=== PATIENT | female | born 1985 | race Caucasian/White ===

== ENCOUNTER 2017-10-17 08:08 | Inpatient (IN) | payer OTHER ==
[2017-10-17] MEDS ORDERED: Dinoprostone* 10 MG VAG.SUPP VAGINAL ONE (08:43)
--- NOTE | 2017-10-17 08:54 | HP ---
General Information - General Information Maternal Age: 31 Grav: 1 Para: 0 SAB: 0 IEA: 0 Estimated Due Date: 10/30/17 Determined By: LMP Gestational Age in Weeks and Days: 38 Weeks and 1 Days Maternal Blood Type and Rh: A Positive - Results this Serology/RPR Result: Non-Reactive Rubella Result: Immune HBsAg Result: Negative HIV Result: Negative GBS Culture Result: Negative Past Medical History Delivery History: See Records Delivery History Comment: primip Pertinent Past Medical History: See Records Past Medical History Comment: Hx asthma. Uses rescue inhaler PRN Pseudoseizures Lyme Disease (11/2016) Hx Eosinophilic Esophagitis followed by Dr. Wick Pertinent Past Surgical History: See Records Past Surgical History Comment: Tonsillectomy 2009 Pertinent Family History: See Records Family History Comment: Father GI problems Mother Hx unknown PGM DM Type 2 PGF CAD MGM Thyroid disease, breast cancer MGF Alzheimers - Antepartal Records Antepartal Records: Reviewed, Complicated by: - gestational hypertension Review of Systems Constitutional: Comfortable CV Complaint: No Respiratory: Shortness of Breath: No Gastrointestinal: No Nausea/Vomiting, Normal Bowel Movement Genitourinary: No Dysuria, No Bleeding, No Leaking Fluid Musculoskeletal: No Complaint Neurological: No Headache, No Visual Changes Movement: Normal Exam Allergies/Adverse Reactions: Allergies No Known Allergies Allergy (Verified 10/14/17 09:27) BP 149/88 HR 75 T 98.4 RR 16 - Measurements Height: 5 ft 4 in Weight: 175 lb Weight in lbs: 175 Body Mass Index (BMI): 30.0 Pre- Weight: 129 lb Weight Gained This : 46 lbs and 0 ozs - Exam Abdomen: No Upper Quadrant Pain Breast: Breast Exam Deferred CVA: No CVA Tenderness Extremities: No Edema Heart: Normal Rhythm/Heart Sounds HEENT: No Significant Findings Lungs: Clear Bilaterally Rectal: Rectal Exam Deferred Reflexes: DTR 2+ Thyroid: No Thyromegaly - Abdominal Exam Abdomen Exam: Non-Tender, Fundal Height Consistent with Dates - Ultrasound/Biophysical Profile Ultrasound Status: Not Done Targeted Exam Findings See L&D Outpatient Visit Provider Note for Findings: N/A Estimated Weight: EFW 6.5lbs Cervical Exam: 1cm Effacement: 50% Station: -2 Presenting Part: Vertex Membrane Status: Intact Sterile Speculum Exam: Not done Bleeding/Discharge: Bloody Show - s/p VE EFM Findings - External Monitor Findings Baseline Heart Rate: 140 External Monitor Findings: Accelerations Present, No Pattern of Variable or Late Decelerations, Variability Moderate, Baseline Stable External Monitor Findings Comment: No evidence of metabolic acidemia Contractions: None Assessment/Plan - Reason for Visit Reason for Visit: IUP at 38-1/7 with gestational hypertension No evidence of metabolic acidemia - Obstetrical Risk Factors Obstetrical Risk Factors: Gestational Hypertension - Plan Plan: Cervical Ripening
--- NOTE | 2017-10-17 10:22 | PTEDU ---
Patient Name: SHIREEN KUHN SHIREEN KUHN selected video: Never Ever Shake a Baby to view on 10/17/2017 at 10:21:48 AM from [facility] [id number]
--- NOTE | 2017-10-17 10:32 | PTEDU ---
Patient Name: SHIREEN KUHN SHIREEN KUHN selected video: BBOB: Nurturing Your Gorgeous &Growing Baby by to view on 10/17/2017 at 10:31:01 AM [id number]
--- NOTE | 2017-10-17 17:31 | PN ---
Progress Note - Progress Note Date of Service: 10/17/17 Note: S: Pt coped well with UCs in the tub. At 1608 requested that Cervidil be removed by RN because pt no longer felt a rest between UCs. Per CNM order Cervidil removed at that time. Pt continues to breathe with UCs O: BP 150/90 HR 77 RR 20 T 98.3 FHT 135bpm. Moderate variability. +Accels. No decels. UCs q 1.5-3 min. Moderate to palpation VE: 3cm/70%/vtx -2 A: IUP at 38-1/7 IOL for Gestational HTN No evidence of metabolic acidemia P: Pt consents to IV placement and repeat BP labs. Interested in Nitronox for pain relief. Not ready yet. Expectant mgmt of current UC pattern. Re-eval PRN. Please see paper charting from this point on.
[2017-10-17 17:50] LABS: ABS Basophils 0.1 10^3/ul (0-0.2); ABS Eosinophils 0.8 10^3/ul (0-0.6); ABS Lymphocytes 3.4 10^3/ul (1.0-4.8); ABS Neutrophils 10.4 10^3/ul (1.5-7.7); ABS Nucleated RBC 0 10^3/ul; Eosinophil % 5.4 % (0-6); Hematocrit 38 % (35-47); Hemoglobin 12.9 g/dl (12.0-16.0); Lymphocyte % 21.6 % (25-47); Mean Corpuscular HGB Conc 34 g/dl (31-36); Mean Corpuscular Hemoglobin 30 pg (27-31); Mean Corpuscular Volume 88 fL (80-97); Mean Platelet Volume 10.7 um3 (7.4-10.4); Nucleated Red Blood Cells % 0; Platelet Count 193 10^3/ul (150-450); Red Blood Count 4.31 10^6/ul (4.0-5.4); Red Cell Distribution Width 13 % (10.5-15); White Blood Count 15.8 10^3/ul (3.5-10.8)
[2017-10-17 18:07] LABS: EGFR Non-African American 103.3 (>60); Uric Acid 4.9 mg/dL (2.3-6.6)
[2017-10-17] MEDS ORDERED: Oxytocin in LR* 20 UNITS/1,000 ML BAG IVPB ONE (23:33)
[2017-10-17] MEDS ORDERED: Oxytocin in LR* 20 UNITS/1,000 ML BAG IVPB SCH (23:45)
[2017-10-18] MEDS ORDERED: Oxytocin in LR* 0 UNITS/0 ML BAG IVPB ONE (11:25)
[2017-10-18] MEDS ORDERED: fentaNYL* 50 MCG/ML 2 ML VIAL (100 MCG VIAL) ONE (12:01)
[2017-10-18] MEDS ORDERED: Glycerin ADULT SUPP PR PRN (12:36)
[2017-10-18] MEDS ORDERED: Acetaminophen TAB* 325 MG PO PRN (12:36)
[2017-10-18] MEDS ORDERED: Clindamycin 900 MG IVPREMIX(* 900 MG/50 ML SDV IV ONE (13:18)
[2017-10-18] MEDS ORDERED: Gentamicin ADULT (*) 120 MG in NS 0.9% 100 ML* 100 ML IVPB ONE (14:00)
[2017-10-18] MEDS: Dibucaine 1% 28.35 GM TUBE PR PRN (14:15)
[2017-10-18] MEDS: Docusate CAP* 100 MG PO SCH ×2 (14:15→22:12)
[2017-10-18] MEDS: Witch Hazel PAD* JAR TOPICAL PRN (14:15)
[2017-10-18] MEDS: Ibuprofen TAB* 600 MG PO PRN ×2 (14:16→22:11)
[2017-10-18] MEDS ORDERED: Ammonia Inhalant* 1 EA AMP ONE (17:02)
[2017-10-18] MEDS ORDERED: Simethicone TAB* 80 MG TAB.CHEW PO SCH (17:30)
[2017-10-19 05:42] LABS: Hematocrit 33 % (35-47); Mean Corpuscular HGB Conc 33 g/dl (31-36); Mean Corpuscular Hemoglobin 30 pg (27-31); Mean Corpuscular Volume 90 fL (80-97); Mean Platelet Volume 10.8 um3 (7.4-10.4); Platelet Count 152 10^3/ul (150-450); Red Blood Count 3.65 10^6/ul (4.0-5.4); Red Cell Distribution Width 13 % (10.5-15)
[2017-10-19 06:52] LABS: ABS Basophils 0 10^3/ul (0-0.2); ABS Eosinophils 0.4 10^3/ul (0-0.6); ABS Lymphocytes 5.2 10^3/ul (1.0-4.8); ABS Monocytes 1.8 10^3/ul (0-0.8); ABS Neutrophils 14.5 10^3/ul (1.5-7.7); ABS Nucleated RBC 0 10^3/ul; Eosinophil % 1.8 % (0-6); Lymphocyte % 23.7 % (25-47); Nucleated Red Blood Cells % 0
[2017-10-19] MEDS: Docusate CAP* 100 MG PO SCH ×3 (08:37→21:30)
[2017-10-19] MEDS: Ibuprofen TAB* 600 MG PO PRN ×2 (08:37→15:39)
[2017-10-19] MEDS ORDERED: Ferrous Gluconate TAB* 324 MG TAB PO SCH (09:00)
[2017-10-20] MEDS: Witch Hazel PAD* JAR TOPICAL PRN (06:51)
[2017-10-20] MEDS: Ibuprofen TAB* 600 MG PO PRN (06:51)
[2017-10-20] MEDS: Dibucaine 1% 28.35 GM TUBE PR PRN (06:51)
[2017-10-20 07:55] VITALS: BP 142/74
[2017-10-20] MEDS: Docusate CAP* 100 MG PO SCH (08:08)
== END 2017-10-20 13:00 | disposition home or self-care (01) | DRG 541 ==
LOC: MCHOBOUT 08:08 → MCHOB 08:40
PROVIDERS: ADMIT Midwife; ATTEND Obstetrics & Gynecology
PROC: 10D07Z6 Extraction of Products of Conception, Vacuum, Via Natural or Artificial Opening (ICD-10-PCS; principal; 2017-10-18)
PROC: 4A1HXCZ Monitoring of Products of Conception, Cardiac Rate, External Approach (ICD-10-PCS; 2017-10-18)
PROC: 3E0P7VZ Introduction of Hormone into Female Reproductive, Via Natural or Artificial Opening (ICD-10-PCS; 2017-10-18)
PROC: 0W8NXZZ Division of Female Perineum, External Approach (ICD-10-PCS; 2017-10-18)
PROC: 10D17Z9 Manual Extraction of Products of Conception, Retained, Via Natural or Artificial Opening (ICD-10-PCS; 2017-10-18)
DX: O13.4 Gestational [pregnancy-induced] hypertension without significant proteinuria, complicating childbirth (principal); Z88.1 Allergy status to other antibiotic agents; Z91.012 Allergy to eggs; Z91.040 Latex allergy status; Z88.0 Allergy status to penicillin; Z91.018 Allergy to other foods; J45.909 Unspecified asthma, uncomplicated; O99.52 Diseases of the respiratory system complicating childbirth; Z83.3 Family history of diabetes mellitus; Z82.49 Family history of ischemic heart disease and other diseases of the circulatory system; Z83.49 Family history of other endocrine, nutritional and metabolic diseases; Z82.0 Family history of epilepsy and other diseases of the nervous system; O76 Abnormality in fetal heart rate and rhythm complicating labor and delivery; Z3A.38 38 weeks gestation of pregnancy; Z37.0 Single live birth; O22.43 Hemorrhoids in pregnancy, third trimester
CPT/HCPCS: 36415; 80053; 84550; 85025; 85060; 86850; 86900; 86901; A9270-GY; J1580; J3010